=== PATIENT | female | born 1955 | race African-American/Black ===

== ENCOUNTER 2019-08-24 09:26 | Emergency (ER) | payer OTHER ==
[~2019-08-24] VITALS: Ht 165.1 cm; Wt 66.0 kg
[2019-08-24] MEDS ORDERED: KETOROLAC 30MG/ML VIAL IM ONE (10:00)
[2019-08-24 11:54] VITALS: BP 152/61
== END 2019-08-24 11:56 | disposition home or self-care (01) ==
LOC: ER 09:26
DX: S42.351A Displaced comminuted fracture of shaft of humerus, right arm, initial encounter for closed fracture (principal); S42.211A Unspecified displaced fracture of surgical neck of right humerus, initial encounter for closed fracture; I10 Essential (primary) hypertension; W01.0XXA Fall on same level from slipping, tripping and stumbling without subsequent striking against object, initial encounter; Y93.89 Activity, other specified; Y92.512 Supermarket, store or market as the place of occurrence of the external cause
CPT/HCPCS: 73030; 73080; 73090; 96372; 99284; J1885